=== PATIENT | female | born 1935 | race African-American/Black ===

== ENCOUNTER 2022-04-09 13:03 | Inpatient (IN) | payer MEDICARE ==
[~2022-04-09] VITALS: Ht 30.5 cm; Wt 73.9 kg
[2022-04-09] MEDS ORDERED: ASPIRIN 81MG TABLET PO ONE (14:00)
[2022-04-09 16:12] LABS: CHLORIDE 101 mEq/L (98-107)
[2022-04-09 16:19] LABS: PARTIAL THROMBOPLASTIN TIME 28.1 sec (23.4-31.0); PROTHROMBIN TIME 10.9 sec (9.6-11.0)
[2022-04-09 16:23] LABS: BASOPHILS % 0.4 % (0.0-2.0); EOSINOPHILS % 1.9 % (0.0-5.0); HEMATOCRIT. 27.8 % (36.0-48.0); HEMOGLOBIN. 9.1 g/dL (12.0-16.0); MEAN CORPUSCULAR HEMOGLOBIN 29.1 pg (28.0-32.0); MEAN CORPUSCULAR VOLUME 89.1 fL (81.0-99.0); MEAN PLATELET VOLUME 8.8 fl (7.4-10.4); NEUTROPHILS % 61.7 % (40.0-76.0); PLATELET 130 x1000/uL (130-400); RED BLOOD CELL COUNT 3.12 mill/uL (4.2-5.4); RED CELL DISTRIBUTION WIDTH 16.3 % (11.6-14.6)
[2022-04-09] MEDS ORDERED: ASPIRIN 81MG TABLET PO NR (17:15)
[2022-04-09 17:42] LABS: D-DIMER 3.48 mg/L FEU (<0.50)
[2022-04-09] MEDS ORDERED: DEXTROSE 50% WATER 50ML SYRINGE IV PRN (19:15)
[2022-04-09] MEDS ORDERED: DOCUSATE SODIUM 100MG CAPSULE PO PRN (19:15)
[2022-04-09] MEDS ORDERED: BUSPIRONE HCL 5MG TABLET PO PRN (19:45)
[2022-04-09] MEDS ORDERED: CLONIDINE 0.1MG TABLET PO PRN (20:00)
[2022-04-09] MEDS: CARVEDILOL 12.5MG TABLET PO SCH (21:00)
[2022-04-09] MEDS: BLOOD SUGAR DIAGNOSTIC STRIP TEST SCH (21:00)
[2022-04-09] MEDS: INSULIN LISPRO 100 UNITS/ML SUBCUT SCH (21:00)
[2022-04-09] MEDS ORDERED: ACETAMINOPHEN 325MG TABLET PO PRN (22:45)
[2022-04-10] VITALS (12 sets, daily range): BP systolic 119–170; BP diastolic 49–84
[2022-04-10] MEDS ORDERED: TERA2CAP4 PO (06:19)
[2022-04-10] MEDS ORDERED: CARV25TA47 PO (06:19)
[2022-04-10] MEDS ORDERED: SODI650T PO (06:19)
[2022-04-10] MEDS ORDERED: NEPVIT MT (06:19)
[2022-04-10] MEDS ORDERED: CALC0.25 PO (06:19)
[2022-04-10] MEDS ORDERED: SODI10PO PO (06:19)
[2022-04-10] MEDS: INSULIN LISPRO 100 UNITS/ML SUBCUT SCH ×4 (06:35→21:00)
[2022-04-10] MEDS: BLOOD SUGAR DIAGNOSTIC STRIP TEST SCH ×4 (06:35→21:00)
[2022-04-10 08:36] LABS: BASOPHILS % 0.4 % (0.0-2.0); EOSINOPHILS % 3.4 % (0.0-5.0); HEMATOCRIT. 27.3 % (36.0-48.0); HEMOGLOBIN. 8.9 g/dL (12.0-16.0); LYMPHOCYTES % 26.5 % (20.0-50.0); MEAN CORPUSCULAR HEMOGLOBIN 29.3 pg (28.0-32.0); MEAN CORPUSCULAR VOLUME 89.5 fL (81.0-99.0); MEAN PLATELET VOLUME 9.7 fl (7.4-10.4); MONOCYTES % 9.6 % (2.0-8.0); NEUTROPHILS % 60.1 % (40.0-76.0); PLATELET 146 x1000/uL (130-400); RED BLOOD CELL COUNT 3.04 mill/uL (4.2-5.4); RED CELL DISTRIBUTION WIDTH 16.9 % (11.6-14.6)
[2022-04-10] MEDS: CALCITRIOL 0.25MCG CAPSULE PO SCH (09:00)
[2022-04-10] MEDS: FOLIC ACID/VITAMIN B COMP W-C TABLET PO SCH (09:00)
[2022-04-10] MEDS: CARVEDILOL 12.5MG TABLET PO SCH ×2 (09:00→21:21)
[2022-04-10] MEDS: TERAZOSIN HCL 1MG CAPSULE PO SCH ×2 (09:00→17:51)
[2022-04-10] MEDS: NIFEDIPINE XL 60MG TAB PO SCH ×2 (09:00→17:51)
[2022-04-10] MEDS: FAMOTIDINE 20MG TABLET PO SCH (09:00)
[2022-04-10] MEDS: ENOXAPARIN 30MG/0.3ML SYR SUBCUT SCH (09:00)
[2022-04-10 09:08] LABS: CHLORIDE 103 mEq/L (98-107)
[2022-04-10 09:22] LABS: HDL CHOLESTEROL 49 mg/dL (40-59); LDL CHOLESTEROL 160 mg/dL (5-100); T4 FREE 1.31 ng/dL (0.76-1.46)
[2022-04-10 11:04] LABS: HEPATITIS B SURFACE ANTIGEN NEGATIVE
[2022-04-10] MEDS ORDERED: HYDROXYZINE 25MG TABLET PO PRN (12:00)
[2022-04-11] VITALS: BP 132/58
[2022-04-11 04:00] VITALS: BP 135/76
[2022-04-11 06:31] LABS: BASOPHILS % 0.6 % (0.0-2.0); EOSINOPHILS % 2.8 % (0.0-5.0); HEMATOCRIT. 29.4 % (36.0-48.0); HEMOGLOBIN. 9.5 g/dL (12.0-16.0); LYMPHOCYTES % 25.1 % (20.0-50.0); MEAN CORPUSCULAR HEMOGLOBIN 28.7 pg (28.0-32.0); MEAN CORPUSCULAR VOLUME 88.9 fL (81.0-99.0); MEAN PLATELET VOLUME 9.3 fl (7.4-10.4); MONOCYTES % 9.4 % (2.0-8.0); NEUTROPHILS % 62.1 % (40.0-76.0); PLATELET 184 x1000/uL (130-400); RED BLOOD CELL COUNT 3.31 mill/uL (4.2-5.4); RED CELL DISTRIBUTION WIDTH 17.1 % (11.6-14.6)
[2022-04-11 06:45] LABS: CHLORIDE 100 mEq/L (98-107)
[2022-04-11] MEDS: BLOOD SUGAR DIAGNOSTIC STRIP TEST SCH ×2 (07:10→12:54)
[2022-04-11] MEDS: INSULIN LISPRO 100 UNITS/ML SUBCUT SCH ×2 (07:33→12:40)
[2022-04-11 08:00] VITALS: BP 144/60
[2022-04-11] MEDS: CALCITRIOL 0.25MCG CAPSULE PO SCH (09:37)
[2022-04-11] MEDS: FOLIC ACID/VITAMIN B COMP W-C TABLET PO SCH (09:37)
[2022-04-11] MEDS: NIFEDIPINE XL 60MG TAB PO SCH (09:37)
[2022-04-11] MEDS: CARVEDILOL 12.5MG TABLET PO SCH (09:38)
[2022-04-11] MEDS: TERAZOSIN HCL 1MG CAPSULE PO SCH (09:38)
[2022-04-11] MEDS: ENOXAPARIN 30MG/0.3ML SYR SUBCUT SCH (09:39)
[2022-04-11] MEDS: FAMOTIDINE 20MG TABLET PO SCH (09:39)
[2022-04-11] MEDS ORDERED: EPOE10005 SUBCUT (11:35)
[2022-04-11] MEDS ORDERED: NIFE-32 PO (11:35)
[2022-04-11] MEDS ORDERED: HYDR-3735 PO (11:35)
[2022-04-11] MEDS ORDERED: AMOX1TAB15 MT (11:49)
[2022-04-11 14:25] VITALS: BP 131/60
[2022-04-12] MEDS ORDERED: EPOETIN ALFA 10000UNITS/ML VIAL SUBCUT SCH (21:00)
== END 2022-04-11 14:50 | disposition home health service (06) | DRG 867 ==
LOC: ER 13:03 → 8WST 17:07 → EDBEDREQTM 17:16 → EDBEDREQ 17:16
PROVIDERS: ADMIT Internal Medicine; ATTEND Internal Medicine
PROC: 5A1D70Z Performance of Urinary Filtration, Intermittent, Less than 6 Hours Per Day (ICD-10-PCS; principal; 2022-04-10)
DX: A49.1 Streptococcal infection, unspecified site (principal); G93.41 Metabolic encephalopathy; I26.99 Other pulmonary embolism without acute cor pulmonale; N18.6 End stage renal disease; I12.0 Hypertensive chronic kidney disease with stage 5 chronic kidney disease or end stage renal disease; E87.8 Other disorders of electrolyte and fluid balance, not elsewhere classified; J84.10 Pulmonary fibrosis, unspecified; E78.5 Hyperlipidemia, unspecified; D63.1 Anemia in chronic kidney disease; E86.0 Dehydration; E11.22 Type 2 diabetes mellitus with diabetic chronic kidney disease; F43.23 Adjustment disorder with mixed anxiety and depressed mood; Z99.2 Dependence on renal dialysis; Z79.84 Long term (current) use of oral hypoglycemic drugs; Z79.899 Other long term (current) drug therapy; B95.0 Streptococcus, group A, as the cause of diseases classified elsewhere
CPT/HCPCS: 36415; 71045; 71250; 78580; 80053; 80061; 82962; 83036; 83735; 83880; 84439; 84443; 84484; 85025; 85379; 86705; 86709; 86803; 87077; 87340; 90935; 93005; 93306; 93970; 97162; 97166; 99285; J1650